=== PATIENT | female | born 1960 | race African-American/Black ===

== ENCOUNTER 2017-08-15 12:25 | Emergency (ER) | payer OTHER ==
[~2017-08-15] VITALS: Ht 165.1 cm; Wt 57.0 kg
[2017-08-15 15:23] VITALS: BP 124/60
== END 2017-08-15 15:24 | disposition home or self-care (01) ==
LOC: ER 13:45
DX: S89.90XA Unspecified injury of unspecified lower leg, initial encounter (principal); M25.461 Effusion, right knee; F17.200 Nicotine dependence, unspecified, uncomplicated; W01.0XXA Fall on same level from slipping, tripping and stumbling without subsequent striking against object, initial encounter; Y92.9 Unspecified place or not applicable
CPT/HCPCS: 73562; 99284; L1830

== ENCOUNTER 2017-09-06 10:23 | Emergency (ER) | payer OTHER ==
[~2017-09-06] VITALS: Ht 165.1 cm; Wt 57.0 kg
[2017-09-06] MEDS ORDERED: TRAM50TA PO (10:59)
[2017-09-06] MEDS ORDERED: IBUP-2029 PO (10:59)
[2017-09-06 11:00] VITALS: BP 113/77
== END 2017-09-06 16:07 | disposition left against medical advice (07) ==
LOC: ER 11:32
DX: M25.561 Pain in right knee (principal)
CPT/HCPCS: 99281

== ENCOUNTER 2019-09-27 23:22 | Emergency (ER) | payer OTHER ==
[~2019-09-27] VITALS: Ht 165.1 cm; Wt 67.0 kg
[~2019-09-27 23:22] MED LIST: IBUP-2029 PO; TRAM50TA PO
[2019-09-28] MEDS ORDERED: SULFAMETHOXAZOLE/TRIMETHOPRIM 800/160MG TABLET PO ONE
[2019-09-28] MEDS ORDERED: CEPHALEXIN 250MG CAPSULE PO ONE
[2019-09-28] MEDS ORDERED: IBUPROFEN 600MG TABLET PO ONE
[2019-09-28] MEDS ORDERED: LIDOCAINE 1%/EPI 1:100,000 10 ML VIAL IJ ONE
[2019-09-28] MEDS ORDERED: LIDOCAINE HCL/EPINEPHRINE 1%-EPI 1:100,000 20 ML VIAL INFIL NR (00:15)
[2019-09-28 01:38] VITALS: BP 110/70
== END 2019-09-28 01:40 | disposition home or self-care (01) ==
LOC: ER 23:22
DX: L02.31 Cutaneous abscess of buttock (principal); F12.10 Cannabis abuse, uncomplicated; Z79.899 Other long term (current) drug therapy
CPT/HCPCS: 10060; 99284; J3490